=== PATIENT | male | born 1975 | race Caucasian/White ===

== ENCOUNTER 2023-09-02 | Emergency (ER) | payer OTHER, SELFPAY ==
[2023-09-02 00:02] VITALS: BP 160/107; PULSE 112; RESP 22; TEMP 36.9; O2SAT 97; BMI 29.5
--- NOTE | 2023-09-02 00:15 | CT_ITS ---
[address] [address] Patient Name: JOHNNY ARREAGA MRN: [id number] date: 1975 Sex: M Assigned Patient Location: ER Current Patient Location: .MAIN Accession/Order Number: [id number] Exam Date: 09/02/2023 00:42 Report Date: 09/02/2023 01:08 At the request of: SONJA KNOX Procedure: CT abdomen pelvis wo con EXAMINATION:CT abdomen pelvis wo con INDICATION:RLQ pain COMPARISON:01/25/2021 TECHNIQUE:Multiple thin section transaxial slices were acquired through the abdomen and pelvis without intravenous contrast. Coronal and sagittal reconstructed images were reviewed. Oral contrastWas not administered. FINDINGS: LOWER CHEST: The lower chest is unremarkable. LIVER: The liver is unremarkable. GALLBLADDER AND BILIARY SYSTEM: No obvious ductal dilation. The gallbladder is absent. SPLEEN: The spleen is unremarkable. PANCREAS: The pancreas is unremarkable. ADRENAL GLANDS: The adrenal glands are unremarkable. KIDNEYS AND URETERS: There is mild right-sided hydronephrosis and hydroureter. Perinephric and periureteral fat stranding are present. There is a calculus in the right ureterovesical junction measuring 4 mm.There is no left hydronephrosis. The left ureter is within normal limits without obstructing urologic calcifications. There are numerous nonobstructive intrarenal calculi in the right kidney. VASCULATURE: Vascularity is unremarkable. PERITONEUM/RETROPERITONEUM: Peritoneum/retroperitoneum is unremarkable. LYMPH NODES: No suspicious lymphadenopathy. GASTROINTESTINAL TRACT: The bowel is normal in caliber.There is chronic colonic diverticulosis of the colon without acute inflammation.The appendix is visualized and is not inflamed. BLADDER: Right ureterovesical junction calculus is present as discussed above. Part of the anterior left side of the urinary bladder traverses towards a left inguinal hernia defect. REPRODUCTIVE SYSTEM: Reproductive system is unremarkable. BODY WALL: There is a moderate left fat-containing inguinal hernia. There is a tiny fat-containing umbilical hernia. BONES: Osseous structures are unremarkable. CT/CT abdomen pelvis wo con IMPRESSION: 1. Mild right-sided hydronephrosis and hydroureter secondary to a 4 mm size calculus in the right ureterovesical junction. 2. Multiple nonobstructive right intrarenal calculi. Electronically authenticated by: JENNA CROWE Date: 09/02/2023 01:08
[2023-09-02 00:20] LABS: Basophils Absolute Auto 0.1 10^3/uL (0.0-0.1); Basophils Percent Auto 0.7 % (0.2-2.0); Eosinophils Absolute Auto 0.3 10^3/uL (0.0-0.7); Eosinophils Percent Auto 3.2 % (0.9-7.0); Hematocrit 47.7 % (42.0-54.0); Hemoglobin 16.2 g/dL (14.0-18.0); Immature Granulocytes Abs Auto 0.02 10^3/uL (0.00-0.03); Immature Granulocytes Pct Auto 0.2 % (0.0-0.5); Lymphocytes Absolute Auto 3.6 10^3/uL (1.2-3.8); Lymphocytes Percent Auto 36.9 % (20.5-60.0); Mean Corpuscular Hemoglobin 29.2 pg (25.9-34.0); Mean Corpuscular Volume 86.1 fL (80.0-94.0); Mean Platelet Volume 9.1 fL (9.5-13.5); Monocytes Absolute Auto 0.9 10^3/uL (0.3-0.8); Monocytes Percent Auto 9.6 % (1.7-12.0); Neutrophils Absolute Auto 4.8 10^3/uL (1.4-6.5); Neutrophils Percent Auto 49.4 % (43.0-75.0); Platelet Count 259 10^3/uL (150-450); Red Blood Count 5.54 10^6/uL (4.70-6.10); Red Cell Distribution Width 12.8 % (11.0-15.0); White Blood Count 9.6 10^3/uL (4.0-11.0)
--- NOTE | 2023-09-02 00:20 | PC.NURSE ---
Patient states he has a hisstory of kidney stones, that he had a stent placed last week by Dr Reyes at [facility] that was removed at 2030 last evening. He did not have pain immediately after this, and was able to urinate without difficulty. This pain started several hours after and woke him up out of a sleep. He states this pain feels different than other kidney stones because it is in the front, lower abdomen and it is not radiating at all. This information is passed along to Dr Miles and orders are placed
--- NOTE | 2023-09-02 00:24 | ED_ITS ---
HPI - Male Genitourinary General Chief complaint: Urogenital-Male Stated complaint: FLANK PAIN Time Seen by Provider: 09/02/23 00:02 Source: patient Mode of arrival: walk-in Limitations: no limitations History of Present Illness HPI Narrative: 48-year-old male presents for right sided abdominal and flank pain. Recently he had what sounds like lithotripsy and he had a stent placed. It was taken out tonight as scheduled about 8 PM. About an hour ago, about 11:30 PM,, he awoke with this pain that severe and continuous and he points to his right lower abdomen. No fever and no left-sided pain. It's continuous. Related Data Home Medications Medication Instructions Recorded Confirmed carvedilol 25 mg tablet mg 09/02/23 hydrochlorothiazide 50 mg tablet mg 09/02/23 omeprazole 40 mg capsule,delayed mg 09/02/23 release potassium chloride 20 mEq meq PO 09/02/23 tablet,extended release tamsulosin 0.4 mg capsule mg PO 09/02/23 Previous Rx's Medication Instructions Recorded cephalexin 500 mg capsule 500 mg PO TID 7 days #21 caps 09/02/23 hydrocodone 5 mg-acetaminophen 325 1 tab PO Q6H PRN pain 5 days #20 09/02/23 mg tablet tabs tamsulosin 0.4 mg capsule (Flomax) 0.4 mg PO DAILY #7 caps 09/02/23 Allergies Allergy/AdvReac Type Severity Reaction Status Date / Time No Known Drug Allergies Allergy Verified 09/02/23 00:07 Review of Systems ROS Narrative A ten point review of systems is negative except as noted above. PFSH PFSH Social History Smoking status: Never smoker Exam Narrative Exam Narrative: Nurses note and vital signs reviewed and patient is not hypoxic. General: The patient it was standing and appears uncomfortable. Skin: Warm, dry, no pallor noted. There is no rash noted. Head: Normocephalic, atraumatic Eye: Normal conjunctiva, no drainage Ears, Nose, Mouth, and Throat: oral mucosa is moist. Nares patent. Cardiovascular: Regular Rate and Rhythm Respiratory: Patient is in no distress, no accessory muscle use, lungs are clear to auscultation, no wheezing, rales or rhonchi Back: non-tender, no CVA tenderness bilaterally to percussion. GI: nontender, nondistended Musculoskeletal: The patient has no evidence of calf tenderness, no pitting edema, symmetrical pulses noted bilaterally Neurological: A&O, normal speech Psychiatric: Cooperative Constitutional Vital Signs, click to edit/add: Last Vital Signs Temp 98.4 F 09/02/23 00:02 Pulse 112 H 09/02/23 00:02 Resp 22 09/02/23 00:02 BP 160/107 H 09/02/23 00:02 Pulse Ox 97 09/02/23 00:02 O2 Del Method Room Air 09/02/23 00:02 Course Vital Signs Vital signs: Vital Signs Temperature 98.4 F 09/02/23 00:02 Pulse Rate 112 H 09/02/23 00:02 Respiratory Rate 22 09/02/23 00:02 Blood Pressure 160/107 H 09/02/23 00:02 Pulse Oximetry 97 09/02/23 00:02 Oxygen Delivery Method Room Air 09/02/23 00:02 Temperature 98.4 F 09/02/23 00:02 Pulse Rate 112 H 09/02/23 00:02 Respiratory Rate 22 09/02/23 00:02 Blood Pressure 160/107 H 09/02/23 00:02 Pulse Oximetry 97 09/02/23 00:02 Oxygen Delivery Method Room Air 09/02/23 00:02 MDM - Male Genitourinary MDM Narrative Medical decision making narrative: 4 mm kidney stone identified at the right UV junction. He was given IV pain medication and appears to be feeling much improved and is able to be discharged home. He'll follow-up with his urologist. He's also prescribed Keflex with urine culture pending. Treatment diagnosis and follow-up were discussed with the patient. Differential Diagnosis Differential diagnosis: Likely other (kidney stone, urinary tract infection, hydronephrosis, hydroureter) Lab Data Attestation: I reviewed the patient's lab results. Labs: Lab Results 09/02/23 09/02/23 Range/Units 00:10 00:45 WBC 9.6 (4.0-11.0) 10^3/uL RBC 5.54 (4.70-6.10) 10^6/uL Hgb 16.2 (14.0-18.0) g/dL Hct 47.7 (42.0-54.0) % MCV 86.1 (80.0-94.0) fL MCH 29.2 (25.9-34.0) pg MCHC 34.0 (29.9-35.2) g/dL RDW 12.8 (11.0-15.0) % Plt Count 259 (150-450) 10^3/uL MPV 9.1 L (9.5-13.5) fL Neut % (Auto) 49.4 (43.0-75.0) % Lymph % (Auto) 36.9 (20.5-60.0) % [place] % (Auto) 9.6 (1.7-12.0) % Eos % (Auto) 3.2 (0.9-7.0) % Baso % (Auto) 0.7 (0.2-2.0) % Neut # (Auto) 4.8 (1.4-6.5) 10^3/uL Lymph # (Auto) 3.6 (1.2-3.8) 10^3/uL [place] # (Auto) 0.9 H (0.3-0.8) 10^3/uL Eos # (Auto) 0.3 (0.0-0.7) 10^3/uL Baso # (Auto) 0.1 (0.0-0.1) 10^3/uL Abs Immat Gran (auto) 0.02 (0.00-0.03) 10^3/uL Imm/Tot Granulo (auto) 0.2 (0.0-0.5) % Sodium 138 (136-145) mmol/L Potassium 3.4 L (3.5-5.1) mmol/L Chloride 100 (98-107) mmol/L Carbon Dioxide 30.0 (21.0-32.0) mmol/L Anion Gap 11.4 BUN 18.0 (7.0-18.0) mg/dL Creatinine 1.28 (0.70-1.30) mg/dL Est GFR ( Amer) >60 (>=60) Est GFR (Non-Af Amer) 60 (>=60) BUN/Creatinine Ratio 14.1 Glucose 95 (74-106) mg/dL Calcium 9.2 (8.5-10.1) mg/dL Urine Color Yellow (YELLOW) Urine Clarity Clear (CLEAR) Urine pH 6.0 (5.0-9.0) Ur Specific [place] >=1.030 A (1.005-1.025) Urine Protein >=300 A (NEG/TRACE) mg/dL Urine Glucose (UA) Negative (NEGATIVE) mg/dL Urine Ketones Negative (NEGATIVE) mg/dL Urine Occult Blood Large A (NEGATIVE) Urine Nitrite Negative (NEGATIVE) Urine Bilirubin Negative (NEGATIVE) Urine Urobilinogen 0.2 (0.2-1.0) EU/dL Ur Leukocyte Esterase Negative (NEGATIVE) Urine RBC 10-20 A (0-2) #/HPF Urine WBC 10-20 A (NONE SEEN) #/HPF Ur Squamous Epith Cells Rare (NONE/RARE) #/LPF Urine Crystals Seen A (None Seen) #/HPF Calcium Oxalate Crystal Many Urine Bacteria Small A (NONE SEEN) #/HPF Urine Casts None seen (NONE SEEN) #/LPF Urine Mucus Moderate A (NONE SEEN) Imaging Data CT scan - abdomen: Radiologist's impression: Procedure: CT abdomen pelvis wo con EXAMINATION:CT abdomen pelvis wo con INDICATION:RLQ pain COMPARISON:01/25/2021 TECHNIQUE:Multiple thin section transaxial slices were acquired through the abdomen and pelvis without intravenous contrast. Coronal and sagittal reconstructed images were reviewed. Oral contrastWas not administered. FINDINGS: LOWER CHEST: The lower chest is unremarkable. LIVER: The liver is unremarkable. GALLBLADDER AND BILIARY SYSTEM: No obvious ductal dilation. The gallbladder is absent. SPLEEN: The spleen is unremarkable. PANCREAS: The pancreas is unremarkable. ADRENAL GLANDS: The adrenal glands are unremarkable. KIDNEYS AND URETERS: There is mild right-sided hydronephrosis and hydroureter. Perinephric and periureteral fat stranding are present. There is a calculus in the right ureterovesical junction measuring 4 mm.There is no left hydronephrosis. The left ureter is within normal limits without obstructing urologic calcifications. There are numerous nonobstructive intrarenal calculi in the right kidney. VASCULATURE: Vascularity is unremarkable. PERITONEUM/RETROPERITONEUM: Peritoneum/retroperitoneum is unremarkable. LYMPH NODES: No suspicious lymphadenopathy. GASTROINTESTINAL TRACT: The bowel is normal in caliber.There is chronic colonic diverticulosis of the colon without acute inflammation.The appendix is visualized and is not inflamed. BLADDER: Right ureterovesical junction calculus is present as discussed above. Part of the anterior left side of the urinary bladder traverses towards a left inguinal hernia defect. REPRODUCTIVE SYSTEM: Reproductive system is unremarkable. BODY WALL: There is a moderate left fat-containing inguinal hernia. There is a tiny fat-containing umbilical hernia. BONES: Osseous structures are unremarkable. IMPRESSION: 1. Mild right-sided hydronephrosis and hydroureter secondary to a 4 mm size calculus in the right ureterovesical junction. 2. Multiple nonobstructive right intrarenal calculi. Electronically authenticated by: JENNA CROWE Date: 09/02/2023 01:08 Discharge Plan Discharge Chief Complaint: Urogenital-Male Clinical Impression: Kidney stone on right side Patient Disposition: Home, Self-Care Time of Disposition Decision: 01:52 Condition: Good Mode of Transportation: Private Vehicle Prescriptions / Home Meds: New cephalexin 500 mg capsule 500 mg PO TID 7 Days Qty: 21 0RF hydrocodone-acetaminophen 5-325 mg tablet 1 tab PO Q6H PRN (Reason: pain) 5 Days Qty: 20 0RF tamsulosin [Flomax] 0.4 mg capsule 0.4 mg PO DAILY Qty: 7 0RF No Action carvedilol 25 mg tablet hydrochlorothiazide 50 mg tablet omeprazole 40 mg capsule,delayed release(DR/EC) tamsulosin 0.4 mg capsule PO potassium chloride 20 mEq tablet extended release PO Instructions: Kidney Stones (ED) Stand Alone Forms: Portal Instructions Referrals: Physician,Non-Staff, MD [Primary Care Provider] - 1 week
[2023-09-02 00:25] LABS: Anion Gap 11.4; BUN Creatinine Ratio 14.1; Calcium 9.2 mg/dL (8.5-10.1); Chloride 100 mmol/L (98-107); Estimated GFR (African America >60 (>=60); Estimated GFR (Non-African Ame 60 (>=60); Glucose 95 mg/dL (74-106); Potassium 3.4 mmol/L (3.5-5.1); Sodium 138 mmol/L (136-145)
[2023-09-02] MEDS: ONDANSETRON PF 4 MG/2 ML VIAL IV (00:28)
[2023-09-02] MEDS: MORPHINE SULFATE 4 MG/ML VIAL IV ×2 (00:28→01:37)
[2023-09-02 01:19] LABS: Bilirubin Urine NEGATIVE (NEGATIVE); Blood Urine LARGE (NEGATIVE); Clarity Urine CLEAR (CLEAR); Color Urine YELLOW (YELLOW); Glucose Urine UA NEGATIVE (NEGATIVE); Ketones Urine NEGATIVE (NEGATIVE); Leukocyte Esterase Urine NEGATIVE (NEGATIVE); Nitrite Urine NEGATIVE (NEGATIVE); Protein Urine >=300 mg/dL (NEG/TRACE); Specific Gravity Urine >=1.030 (1.005-1.025); Urobilinogen Urine 0.2 EU/dL (0.2-1.0)
[2023-09-02 01:26] LABS: Bacteria Urine SMALL #/HPF (NONE SEEN); Calcium Oxalate Crystals Urine MANY; Cast Seen? NONE SEEN #/LPF (NONE SEEN); Crystals Seen? Seen #/HPF (None Seen); Mucus Urine MODERATE (NONE SEEN); Squamous Epithelial Cell Urine RARE #/LPF (NONE/RARE)
== END 2023-09-02 02:16 | disposition home or self-care (01) ==
PROVIDERS: Emergency Provider Emergency Medicine
DX: N20.0 Calculus of kidney (principal); Z79.899 Other long term (current) drug therapy
CPT/HCPCS: 36415; 74176; 80048; 81001; 85025; 87086; 96374; 96375; 96376; 99284